=== PATIENT | female | born 1985 | race Caucasian/White ===

== ENCOUNTER 2019-02-23 21:26 | Outpatient (CLI) | payer OTHER | END 2019-02-24 13:39 | disposition home or self-care (01) | LOC: OBS/DEL 21:26 | DX: O03.9 Complete or unspecified spontaneous abortion without complication (principal); Z34.82 Encounter for supervision of other normal pregnancy, second trimester ==

== ENCOUNTER → 2019-02-23 | Emergency (ER) | payer OTHER ==
[~2019-02-23] VITALS: Ht 160 cm; Wt 61.2 kg
[~2019-02-23] MED LIST: PRENATAL + DHA1 EAC1 PO
== END | disposition still patient (30) ==
LOC: ER 17:56
DX: O03.9 Complete or unspecified spontaneous abortion without complication (principal); Z34.82 Encounter for supervision of other normal pregnancy, second trimester